=== PATIENT | male | born 2000 | race Caucasian/White ===

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

== ENCOUNTER 2020-11-08 19:27 | Emergency (ER) | payer BC, OTHER ==
[~2020-11-08 19:27] MED LIST: KEFLEX500 MG PO; NORCO 5-325 TA1 EACH PO; PREDNISONE 20 M20 MG PO
[2020-11-08] MEDS ORDERED: BACTROBAN OINT22 GM EXT (20:59)
== END 2020-11-08 21:05 | disposition home or self-care (01) ==
LOC: ER1 19:27
DX: S61.211A Laceration without foreign body of left index finger without damage to nail, initial encounter (principal); W26.0XXA Contact with knife, initial encounter; Y92.009 Unspecified place in unspecified non-institutional (private) residence as the place of occurrence of the external cause
CPT/HCPCS: 12001; 99283

== ENCOUNTER 2021-02-04 19:11 | Emergency (ER) | payer BC, OTHER ==
[~2021-02-04 19:11] MED LIST changes: +BACTROBAN OINT22 GM EXT
== END 2021-02-04 22:00 | disposition home or self-care (01) ==
LOC: ER1 19:11
DX: M54.5 Low back pain (principal); G89.29 Other chronic pain
CPT/HCPCS: 72131; 96372; 99283; J1885; J2930

== ENCOUNTER 2021-02-10 18:34 | Emergency (ER) | payer BC, OTHER ==
[2021-02-10] MEDS ORDERED: Flexeril PO (19:01)
[2021-02-10] MEDS ORDERED: NAPROXEN500 MG PO (19:01)
[2021-02-10] MEDS ORDERED: PREDNISONE50 MG PO (19:01)
== END 2021-02-10 19:33 | disposition home or self-care (01) ==
LOC: ER1 18:34
DX: M54.5 Low back pain (principal); G89.29 Other chronic pain
CPT/HCPCS: 99283